=== PATIENT | male | born 1945 | race Caucasian/White ===

== ENCOUNTER 2020-01-10 08:57 | Outpatient (CLI) | payer MEDICARE, BC, SELFPAY ==
--- NOTE | 2020-01-10 08:30 | DI.RAD_ITS ---
EXAM: XR HIP RT COMPLETE AP PELVIS INDICATION: R hip pain. COMPARISON: No exams were available for comparison TECHNIQUE: 2D digital imaging was performed. FINDINGS: Marked osteoarthritis of the right hip is noted. This is characterized by joint space narrowing, sub chondral sclerosis and cysts. Osteophytes are seen at the femoral head. No acute fracture or disloc ation is seen. The bones appear normally mineralized. The soft tissues are unremarkable. Mild dege nerative changes are seen at the left hip. IMPRESSION: Marked osteoarthritis of the right hip. DATA REPOSITORY: RADIATION DOSE DELIVERED:
== END 2020-01-10 09:17 ==
PROVIDERS: PCP Family Medicine; Referring Provider Family Medicine; Visit Provider Physician Assistant
DX: M25.551 Pain in right hip (principal); M16.11 Unilateral primary osteoarthritis, right hip; Z98.890 Other specified postprocedural states
CPT/HCPCS: 99203; 73502

== ENCOUNTER 2020-02-18 02:05 | Outpatient (CLI) | payer MEDICARE, BC, SELFPAY ==
[2020-02-18 09:31] LABS: HCT 44.5 % (40.0-50.0); HGB 14.7 g/dL (13.5-17.5); MCH 29.2 pg (27.0-33.0); MCV 88.5 fL (80-95); MPV 8.6 fL (8.0-11.0); Platelet Count 203 10^3/uL (130-400); RBC 5.03 10^6/uL (4.36-5.78); RDW 12.5 % (11.8-14.1); RDW-SD 40.4 fL; WBC 6.83 10^3/uL (4.4-10.8)
[2020-02-18 10:34] LABS: Anion Gap 10.5 mmol/L (3-11); BUN 20 mg/dL (7-18); CO2 24.5 mmol/L (21.0-32.0); CREATININE 1.37 mg/dL (0.70-1.30); Calcium 8.8 mg/dL (8.5-10.1); Chloride 105 mmol/L (98-107); Estimated GFR 50.52 (mL/min/1.73m2); Glucose 93 mg/dL (74-106); Potassium 4.5 mmol/L (3.5-5.1); Sodium 140 mmol/L (136-145)
== END 2020-02-18 02:25 ==
PROVIDERS: PCP Family Medicine; Visit Provider Student in an Organized Health Care Education/Training Program
DX: M16.11 Unilateral primary osteoarthritis, right hip (principal); Z01.818 Encounter for other preprocedural examination
CPT/HCPCS: 36415; 80048; 85027; 86850; 86900; 86901

== ENCOUNTER 2020-02-18 07:31 | Outpatient (CLI) | payer MEDICARE, BC, SELFPAY ==
[2020-02-20 00:16] LABS: COVID-19 RT-PCR Result NEGATIVE (Negative)
== END 2020-02-18 07:51 ==
PROVIDERS: PCP Family Medicine; Visit Provider Student in an Organized Health Care Education/Training Program
DX: M16.11 Unilateral primary osteoarthritis, right hip (principal); Z01.818 Encounter for other preprocedural examination
CPT/HCPCS: 36415; 80048; 85027; 86850; 86900; 86901; U0003

== ENCOUNTER 2020-02-22 06:00 | Observation (INO) | payer MEDICARE, BC, SELFPAY ==
[2020-02-22] VITALS (12 sets, daily range): BP systolic 127–167; BP diastolic 64–90; PULSE 36–60; RESP 16–18; TEMP 34.6–36.6; O2SAT 95–100
[2020-02-22] MEDS: Acetaminophen 500 MG TAB 1000 MG PO ×2 (06:26→13:36)
[2020-02-22] MEDS: Lactated Ringers 1,000 ML 80 ML IV ×2 (06:26→13:35)
[2020-02-22] MEDS: Celecoxib 200 MG CAP 400 MG PO (06:26)
--- NOTE | 2020-02-22 07:00 | DI.RAD_ITS ---
EXAM: XR HIP RT IN OR CLINICAL HISTORY: OSTEOARTHRITIS RIGHT HIP TECHNIQUE: 2D and realtime digital imaging was performed. Fluoroscopy was provided in the OR COMPARISON: No exams were available for comparison FINDINGS: C-arm fluoroscopy was utilized by Dr. Henderson during insertion of right hip prosthesis. Hard copies show acetabular and femoral components in place. Fluoro time, 28.9 seconds. IMPRESSION: RADIATION DOSE DELIVERED: Total DLP
[2020-02-22] MEDS: ceFAZolin 2 GM/50 ML BAG IVPB (07:34)
[2020-02-22] MEDS: Bupivacaine 0.25% Pres-Free 30 ML VIAL ×2 (08:17→08:18)
[2020-02-22] MEDS: Ketorolac 30 MG/ML VIAL (08:17)
--- NOTE | 2020-02-22 10:02 | ROE_ITS ---
Date of service: 02/22/20 Time of Service: 10:02 Operative Note Operative Note DATE OF PROCEDURE: 02/22/20 PRE-OP DIAGNOSIS: Right Hip Osteoarthritis POST-OP DIAGNOSIS: same PROCEDURE: Right Anterior Total Hip Arthroplasty SURGEON: Dejan Henderson ENGLISH INSTRUCTOR: Afsaneh Jefferson ANESTHESIA: spinal ESTIMATED BLOOD LOSS: 250 PATHOLOGY: none sent TOURNIQUET TIME: 0 COMPLICATIONS: None Patient was transported to: PACU Patient's condition: stable Implants: 1. Depuy Dahlgren Acetabular Component, 56mm 2. Depuy Acetabular Liner, 44x10pe 3. Depuy Corail Standard Collared Femoral Stem, Size 16 4. Depuy Altrx Ceramic Femoral Head, Size 36+12mm Indications: I have seen Rodrigo in clinic for symptoms of hip arthritis, confirmed with radiographic findings. Rodrigo has exhausted nonoperative methods and was having significant limitations in daily function and desired better function and less pain. I discussed the technical details of a hip replacement. I explained the risks of the procedure to include, but not limited to, bleeding, infection, pain, stiffness, fracture, damage to nerves and vessels, damage to muscles and tendons, loosening, instability, leg length inequality, need for repeat procedure, blood clot and cardiopulmonary demise. Despite these risks, Rodrigo elected to proceed. Findings: There was significant signs of arthritis throughout the hip. Large lateral neck osteophytes and acetabular floor and peripheral osteophytes were present. Procedure Description: Rodrigo was greeted in the preoperative holding area where the correct side was identified and marked. The consent was reviewed with the patient and signed. The history and physical was updated. All questions were answered. Rodrigo was taken back to the operating room. A spinal anesthestic was then administered. The patient was placed into the supine position on the operating room table. The patient was then positioned onto the ARCH table. Both feet were wrapped with Webrill cotton wrap along with Coban. The feet were placed in specialized boots for the ARCH table, well seated within the boot and secured. SCDs were applied. The patient was then slid down onto a peroneal post and the nonoperative leg was secured in a leg irving attached to the table. The operative side was placed into the ARCH table attachment and bed height and positioning was secured. A preoperative AP pelvis was obtained to serve as a reference for determining leg lengths. Prophylactic antibiotics in the form of cefazolin were administered. 1g of Tranxemic Acid was given intravenously within 30 minutes of incision. The right leg was then prepped with Chloraprep and draped in a standard fashion. A second prep with Chloraprep was performed prior to placement of a shower-curtain type drape with Iodine impregnated skin protection. A timeout to confirm correct identity, side and site, procedure, allergies, anesthesia, and medical concerns was performed. An obliquely oriented incision was made starting lateral to the ASIS and running distal over the Tensor Fascia Natasha (TFL) muscle belly toward the fibular head, approximately 10cm. The skin and soft tissue was dissected sharply, through Ney?s fascia, and to the fascia of the TFL. With the fascia and superior border of the IT band identified, the fascia was incised with a new knife just above any perforators from the IT band. The TFL muscle belly was bluntly dissected away from the fascia and moved laterally. The fat between TFL and rectus was identified to ensure the dissection was not within the TFL. Blunt dissection created space between abductors and the capsule and retractor was placed over the lateral femoral neck. The fibers of the rectus femoris tendon were identified and these were freed from the anterior capsule. A second cobra retractor was placed around the medial femoral neck. The TFL was further retracted laterally to show the deep fascia. Careful dissection through this layer identified three main crossing vessels of the lateral femoral circumflex. These were cauterized in multiple locations and then cut without any noticeable bleeding. The TFL was further released bluntly from the deep fascia to expose a nterior hip capsule and fat the Lucius orthopaedic retractor was then placed beneath the TFL and against sartorius and medial soft tissues to protect and retract the soft tissues. A T-capsulotomy was then performed starting at the superior lateral acetabulum and moving distally to the intertrochanteric ridge. These capsular flaps were tagged with a No. 1 Ethibond and elevated from within. The capsular flaps were released to the shoulder of the lateral neck and to the lesser trochanter to give excellent visualization of the proximal femur. There were large lateral osteophyte seen around the neck which made release of the capsule challenging. A neck osteotomy was performed using an oscillating saw based on preoperative templates. This cut started in the shoulder and of the lateral neck and exited medially. The saw was at all times directed medially to avoid injury to the greater trochanter. 6cm of traction was applied to the leg and the osteotomy opened. The femoral head was removed with a corkscrew, making sure to protect the TFL on its exit. This was measured on the back table to determing the starting reamer size. Portions of the rectus obscuring visualization were mini sarah elevated off the superior acetabulum. An anterior retractor was placed over the anterior wall between capsule and labrum and attached to the Gripper retraction system. A posterior retractor was placed similarly. This provided excellent visualization. The contents of the cotyloid fossa were removed with electrocautery and the labrum was removed with a knife. There was a notable floor osteophyte. There was significant chondromalacia of the superior acetabulum. Acetabular reaming began with a 52 mm reamer. This first reaming was directed anterior to posterior and medial to get down to the true floor. This was inspected and reamed until the true floor was reached. The anterior retractor was then released and entry and exit was provided by traction on the capsular flaps. I then reamed sequentially up to a 56mm reamer where good fit was obtained. The larger reamers were oriented based on anatomical reference of the anterior and lateral subramanian to ensure proper abduction and anteversion. Positioning and size was confirmed with the fluoroscopy. A 56mm Depuy Dahlgren acetabular component was selected. The acetabulum was reamed around the periphery with the selected acetabular size to prevent a rim fit. The deep tissues were irrigated. The acetabular component was then impacted in a position of about 40-45 degrees of abduction and 15-20 degrees of anteversion, using the patient?s anatomy as the ultimate landmark. Fluoroscopy was used to confirm this. There was excellent drum tester of the acetabular component and the inserting handle was removed. The acetabular liner, Depuy [id number] polyethylene liner, was inserted and lined up with the tines of the acetabular component. There was no soft tissue interposition. The liner was then impacted into position and confirmed to be well-seated. A portion of the andrey-articular cocktail was then injected around the acetabulum into the capsule and periosteum. This cocktail consisted of 50cc of 0.25% Bupivicaine and 20cc of Exparel, expanded to a total of 120cc. Traction was released from the femur. The leg was rotated to 120 degrees. Any remaining medial capsule was released until the lesser trochanter was easily palpable. A Greco retractor was placed medially. The lateral capsule was further released into the shoulder to allow access to the greater trochanter. A Greco retractor was placed over the greater trochanter which allowed the trochanter to flip in front of the capsule for excellent exposure. The leg was brought down into maximal extension and 20 degrees of adduction while ensuring there was no impingement on the acetabulum. Any remnant capsule within the trochanter was released. Piriformis and obturator externis were identified and protected. There was excellent access to the proximal femur. The lateral neck remnant was removed with a rongeur. A blunt canal probe was used to identify the canal and trajectory for later broaching. A box osteotome initiated the broach course. A small curved rasp and a curved curette were used to work laterally. Broaching then began with a size 8 Corail broach. This was inserted manually around the trochanter and into the canal before mallet blows. The broach was seated to a few millimeters below the cut level based on the neck cut and the preoperative template. Sequential broaching was continued with the Dodonationse pneumatic broaching device until a tight fit was obtained with good rotational control of the femur. A trial standard neck was inserted along with a +5 trial head. The leg was brought out of extension and adduction and then reduced with traction and internal rotation. The leg was stable anteriorly in a position of 30 degrees of extension and 90 degrees of external rotation. Fluoroscopy was used to ensure there was no fracture and the stem was seated well. Leg lengths were checked with an AP pelvis and pelvic reference points. [employer] navigation system was used to confirm appropriate positioning and leg length and offset. This unfortunately did not seem to re-create the offset nor the leg length as much as the template would suggest. It did appear that my cup was slightly more medial and slightly higher than planned in my neck cut was cut at the appropriate height. Therefore, using the joint point system it seemed a +12 head on a standard neck would re-create his normal anatomy the best. Once content with the desired offset and leg lengths, the leg was brought back into extension, external rotation and adduction. The periosteum and surrounding tissue was injected with remaining portion of the andrey-articular cocktail. The proximal femur was irrigated as well as the deep tissues. The Depuy Corail standard collared stem, size 16, was then manually inserted into the proximal femur making sure to control rotation. It was then malleted into position with light blows, giving breaks to allow bone expansion and decrease risk of fracture. The selected Depuy Altrx Ceramic Head, size 36+12mm, was then placed onto the clean and dry trunnion and secured with impaction onto the tapered fit. The leg was brought back out of extension and adduction and reduced with traction and internal rotation. Stability was confirmed with no shuck at 90 degrees of external rotation and 30 degrees of extension. No impingement through range of motion arc. Final x-ray images were obtained with fluoroscopy to confirm adequate positioning and no intraoperative fracture. The deep tissues were thoroughly irrigated with Irrisept chlorhexadine solution. The second dose of TXA 1g was administered intravenously. The capsule was then reapproximated with the previously placed Ethibond sutures. The TFL fascia was finally closed with a No. 2 Stratafix, barbed suture. Deep tissues were then reapproximated with 0 Vicryl and a running 2-0 Vicryl. The skin was closed with a running 4-0 Monocryl in a subcuticular fashion. This was reinforced with skin glue. A Mepilex silver dressing was applied. At the end of the case, all counts were correct. Rodrigo was transferred to the hospital bed without difficulty and suffering no apparent complication. Rodrigo has a good prognosis. Physical therapy will start today and without restrictions, weight-bearing as tolerated. Aspirin 81mg BID will be used for DVT prophylaxis.
--- NOTE | 2020-02-22 10:09 | W.PM.DS.N ---
Date of service: 02/22/20 Time of Service: 14:40 DS: Diagnosis Discharge Diagnosis (1) Primary osteoarthritis of right hip: Status: Chronic Discharge Plan Disposition Patient Disposition: HOME Condition: Good Discharge Details Reason For Visit: R HIP TOTAL Admit Date/Time: 02/22/20 06:00 Admit Provider: Dejan Henderson Attending Provider: Dejan Henderson Primary Care Provider: Rodrigo Castillo [facility] Hospital Course: Patient was admitted to the medical/surgical floor following the procedure. The surgery was tolerated well without any notable medical, surgical, or anesthetic complications. Mobilization began postoperatively. He was voiding spontaneously. Vitals were stable. Physical therapy worked with the patient and was cleared for discharge home. No acute medical issues. Pain was controlled on oral regimen. Home Meds and New Rx's Prescriptions: New celecoxib 200 mg capsule 200 mg PO BID PRN (Reason: pain) Qty: 60 RF: 1 aspirin 81 mg tablet,delayed release (DR/EC) 81 mg PO BID Qty: 60 RF: 0 acetaminophen 500 mg tablet 1,000 mg PO Q8H PRN (Reason: pain) Qty: 90 RF: 3 pantoprazole 40 mg tablet,delayed release (DR/EC) 40 mg PO DAILY Qty: 30 RF: 0 docusate sodium [Colace] 100 mg capsule 100 mg PO BID PRNQty: 10 RF: 0 oxycodone 5 mg tablet 5 mg PO Q4H Qty: 12 RF: 0 Continued No Known Home Meds RF: 0 Discharge Instructions Additional Instructions: Dr. Henderson's Total Hip Discharge Instructions Activity: The most important activity is to walk. You should try to take short walks a few times a day. You have no restrictions on movement or positioning, but do not try to force what you do. You will find some stiffness and weakness with hip flexion (lifting your knee). Do not try to strengthen this too early, continue to practice walking and stairs and this will come. - Outpatient physical therapy can be helpful to help return you to a normal gait and improve your flexibility and strength. This can start around 2 weeks. For most patients, it?s not necessary. Usually this is determined at the time of discharge or at the first post-operative visit. - You should wear the FABIOLA hose on both legs for 2 weeks. You may remove those at night. These prevent blood pooling and swelling. Dressing: Keep the surgical dressing in place for at least one week, although it may stay in place untill follow-up. It may get wet after 3 days but avoid soaking the dressing. If it gets wet, just lightly pat dry. Most people prefer to cover the dressing with some ClingWrap, Saran Wrap, to keep it dry. After the first week it may be removed if desired and then replaced with light gauze and tape or nothing. It is important to always keep some gauze or the dressing between skin folds, especially when you are sitting, so the incision is not folded over on itself at the belly fold. Medications: - You should take Tylenol and an anti-inflammatory Celebrex as your primary pain control medications - You have been prescribed a stronger pain medication Oxycodone for breakthrough pain, take as needed as prescribed. - You have also been prescribed a stomach acid reduction agent Pantoprozole to help reduce stomach acid and reflux. - You will be taking Aspirin 81mg twice a day for DVT prevention unless instructed otherwise. - If you have constipation you should take Colace or Miralax (both [id number]). It takes most people 3-4 days to have a bowel movement. Follow-up: 2 weeks. If you have any acute concerns or questions, please do not hesitate to contact the office at [phone]. You may contact Dr. Henderson with any questions after hours through the hospital at [phone] or on his cell phone at [phone]. Referrals: Dejan Henderson MD [ [facility] STAFF PHYSICIAN] - Activity:: Activity as Tolerated Equipment/Supplies:: Walker Diet:: As Tolerated DS: Summary Status at Discharge Functional status at discharge: uses cane/walker Overall status at discharge: patient is progressing back to baseline Mental Status: mental status grossly normal Speech and Movement: speech and movement normal Mood: congruent mood Affect: normal affect Exam Psych Mental Status: mental status grossly normal Speech and Movement: speech and movement normal Mood: congruent mood Affect: normal affect DS: Data Vitals/I&O Vitals and I&O: Vital Signs Temperature 36.6 C 02/22/20 09:57 Pulse 53 L 02/22/20 09:57 Pulse Rhythm Regular 02/22/20 06:16 Respiratory Rate 18 08/04/20 09:57 Respiratory Effort 02/22/20 06:16 Blood Pressure 133/69 02/22/20 09:57 Pulse Oximetry 96 02/22/20 09:57 Respiratory End-tidal CO2 28 02/22/20 09:57 Oxygen Delivery Method Room Air 02/22/20 09:57 Oxygen Flow Rate 0 02/22/20 06:16 Pain Level 0 02/22/20 09:57 Intake & Output 02/21/20 02/21/20 02/22/20 11:59 23:59 11:59 Intake Total 810 / 810 Output Total 250 / 250 Balance 560 / 560 Weight 111.4 kg Intake: IV 810 / 810 Output: Estimated Blood Loss 250 / 250 Other: Emesis Description None PFSH Medical History Bradycardia (Acute) Eczema (Acute) Hyperlipidemia (Acute) Obesity (Chronic) Prostate cancer (Chronic) Surgical History S/P appendectomy (Resolved) Social History Smoking/Tobacco Use Status: Former Tobacco Use Quit Date: 07/21/83 Pack-years: 20 Alcohol Intake: current Alcohol Intake frequency: a few times a week Drug use: Never Substance use type: does not use Current gender identity: male Other: lives alone
[2020-02-22] MEDS: ceFAZolin 1 GM/50 ML BAG IVPB (11:27)
--- NOTE | 2020-02-22 12:40 | IN_ITS ---
Date of service: 02/22/20 Time of Service: 12:40 PT Notes Visit Reasons: R HIP TOTAL Physical Therapy Inpatient Initial Evaluation Date: 02/22/2020 Referring Doctor: Dejan Henderson MD PT Orders: PT CONSULT: Status post Ortho surgery Precautions: Fall. Standard. WBAT on right LE. Patient Profile/Admitting Diagnosis: Rodrigo is a 74-year-old male with primary unilateral osteoarthritis of the right hip status post right total hip arthroplasty on postoperative day 0. PMHX: Medical History (Updated 02/18/20 @ 07:51 by Afsaneh Jefferson) Bradycardia (Acute) Eczema (Acute) Hyperlipidemia (Acute) Obesity (Chronic) Prostate cancer (Chronic) Surgical History (Updated 02/18/20 @ 08:12 by Afsaneh Jefferson) S/P appendectomy (Resolved) Social History/Home Situation: Lives alone in a two-story private home with 2 s teps to enter and a rail on one side. He plans on staying the main floor of the house when he goes home. He is independent with all ADLs without an assistive device nor adaptive equipment although he stated that for the past year he was really limiting the amount of weight on the right LE without using an assistive device. He has a daughter who lives in be helping out once he goes home. 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 Equipment Owned/DME: Front wheeled walker, single-point cane Subjective: Patient reports just a little ache in the right hip and in the anterior medial aspect of thigh with mobility assessment. Denies headache, chest pain, dizziness throughout session. Hold to go home as soon as he is medi dionna cleared to do so. Objective: General Observation: Bilateral TEDS on. Cold pack on her right hip. Mepilex Ag over surgical incision. IV access in left UE. Mental Status: Alert and oriented x 4 Pain: 1/10 in the right hip ROM: Right Upper Extremity: Shoulder Flexion WFL. Shoulder abduction WFL. Elbow flexion WFL. Wrist flexion WFL. Opening and closing of hand WFL. Left Upper Extremity: Shoulder Flexion WFL. Shoulder abduction WFL. Elbow flexion WFL. Wrist flexion WFL. Opening and closing of hand WFL. Right Lower Extremity: Hip flexion WFL. Hip abduction WFL. Knee flexion WFL. Ankle dorsiflexion WFL. Ankle plantarflexion WFL. Left Lower Extremity: Hip flexion WFL. Hip abduction WFL. Knee flexion WFL. Ankle dorsiflexion WFL. Ankle plantarflexion WFL. Strength: Right Upper Extremity: Shoulder flexors 5/5. Shoulder abductors 5/5. Elbow flexors 5/5. Elbow extensors 5/5. Deputy Coroner Investigator strong. Left Upper Extremity: Shoulder flexors 5/5. Shoulder abductors 5/5. Elbow flexors 5/5. Elbow extensors 5/5. Deputy Coroner Investigator strong. Right Lower Extremity: Hip flexors 4/5. Hip abductors 4/5. Knee flexors 5/5. Knee extensors 5/5. Ankle dorsiflexors 5/5. Ankle plantarflexors 5/5. Left Lower Extremity:Hip flexors 5/5. Hip abductors 5/5. Knee flexors 5/5. Knee extensors 5/5. Ankle dorsiflexors 5/5. Ankle plantarflexors 5/5. Sensation: Intact as to pain and pressure on bilateral lower extremities. Bed Mobility/Transfers: Supine to sit independent Sit to supine independent Sit to stand SBA, needs front wheeled walker Stand to sit SBA, needs front wheeled walker Bed to chair SBA, needs front wheeled walker Chair to bed SBA, needs front wheeled walker Gait: Tolerated 150 feet x 2 using front wheeled walker with SBA. Step through gait pattern. Reported a mild ache in the anterior medial aspect of thigh that subsided with rest. Completed up-and-down six 4-inch steps holding onto rail a.m. with one hand and with a single-point cane on the other with standby assist using step to gait pattern. THERA EX: Patient tolerated standing level exercises consisting of bilateral heel raises x10, partial knee bends x10, and high marches x10 without any undue difficulty. Balance: Static Sitting: Normal Dynamic Sitting: Normal Static Standing: Fair Dynamic Standing: Fair Special Tests: Mobility Limitations Standardized Measure [facility] AM-PAC 6 clicks Basic Mobility Inpatient Short Form: Raw Score: 24 CMS Score: 0% deficit Informed Consent/Education: Patient instructed in purpose of PT consult and plan of care. Assessment: Rodrigo demonstrates functional mobility decline requiring the use of front wheeled walker to maximize independence with mobility ADL performance and fall risk. Rodrigo is a 74-year-old male with primary unilateral osteoarthritis of the right hip status post right total hip arthroplasty on postoperative day 0. Patient presents with clinical signs and symptoms consistent with current/admitting diagnoses that have resulted to mobility limitations, gait instability, generalized weakness, and impairment of motor control as demonstrated by the following impairment level findings: 1. Decreased strength to right hip major muscle groups 2. Impaired activity tolerance Impairments are contributing to the following functional limitations: 1. Inability to safely ambulate without assistive device and physical assistance 2. Increase completion time for mobility ADL performance Patient is assessed as a complexity based on the following: History: 74-year-old male with impairment level findings, functional limitations, and past medical history as indicated above Examination: Demonstrable impairment in strength, balance, and mobility level with underlying impairments and functional limitations as documented above Presentation:Evolving Decision Makin moderate complexity Goals: N/A. PT consult and 1 treatment session only for education training in the use of front wheeled walker and exercise initiation. Plan of Care/Treatment Plan: N/A. PT consult and 1 treatment session only for education training in the use of front wheeled walker and exercise initiation. DISCHARGE RECOMMENDATIONS: Outpatient PT services to regain premorbid independent level while maximizing return to vocational/recreational activities. No equipment needs at this time. TREATMENT CODE/TIME: 02713 x 25 minutes, 32616 x 14 minutes beginning at 12:40 PM. Thank you for the opportunity to participate in the care of this patient. Miriam Mcdonald PT, DPT, CLT [facility] [place], [place]
--- NOTE | 2020-02-22 14:58 | NUR.NOTE ---
Nursing Note: 02/22/2020 14:58 Patient arrived to the floor at 10:38 with med/surg nurse Lalit Montague after nurse received handoff report from Yun Lama RN, in the PACU. Patient ate lunch and was cleared by physical therapy before Dr. Henderson came up and determined that Rodrigo can be discharged home this afternoon. Patient to be discharged home with a daughter who will pick him up and help him at home.
== END 2020-02-22 16:06 | disposition home or self-care (01) ==
LOC: MS 11:10 → PDS 11:14 → MS 11:15
PROVIDERS: Admitting Provider Student in an Organized Health Care Education/Training Program; PCP Family Medicine; Visit Provider Student in an Organized Health Care Education/Training Program
PROC: 0SR904A Replacement of Right Hip Joint with Ceramic on Polyethylene Synthetic Substitute, Uncemented, Open Approach (ICD-10-PCS; CPT 27130; principal; 2020-02-22 08:00)
DX: M16.11 Unilateral primary osteoarthritis, right hip (principal); M25.541 Pain in joints of right hand; Z96.641 Presence of right artificial hip joint; E78.5 Hyperlipidemia, unspecified; E66.9 Obesity, unspecified
CPT/HCPCS: 27130; C1776; 97162; 97530; NC; 73501; G0378; J0690; J1885; J2405; J2704; J3010

== ENCOUNTER → 2020-02-22 07:53 | Outpatient (BNVA) | payer MEDICARE, BC, SELFPAY | PROVIDERS: PCP Family Medicine; Referring Provider Family Medicine; Visit Provider Student in an Organized Health Care Education/Training Program | DX: R69 Illness, unspecified (principal) ==

== ENCOUNTER 2020-03-09 08:40 | Outpatient (CLI) | payer MEDICARE, BC, SELFPAY ==
--- NOTE | 2020-03-09 08:30 | DI.RAD_ITS ---
EXAM: XR HIP RT COMPLETE AP PELVIS INDICATION: 1st post op. COMPARISON: CR XR HIP RT COMPLETE AP PELVIS from 01/10/2020 XR HIP RT IN OR from 02/22/2020 TECHNIQUE: 2D digital imaging was performed. FINDINGS: A right hip prosthesis is seen. The components appear satisfactorily aligned. There are no abnormal bony lucencies. There [id number] degenerative changes of the left hip. DATA REPOSITORY: RADIATION DOSE DELIVERED:
== END 2020-03-09 09:00 ==
PROVIDERS: PCP Family Medicine; Referring Provider Family Medicine; Visit Provider Student in an Organized Health Care Education/Training Program
DX: Z96.641 Presence of right artificial hip joint (principal)
CPT/HCPCS: 73502

== ENCOUNTER → 2020-04-06 08:47 | Outpatient (BNVA) | payer MEDICARE, BC, SELFPAY | PROVIDERS: PCP Family Medicine; Referring Provider Family Medicine; Visit Provider Student in an Organized Health Care Education/Training Program | DX: Z96.641 Presence of right artificial hip joint (principal); Z47.1 Aftercare following joint replacement surgery ==

== ENCOUNTER 2021-02-19 13:44 | Outpatient (CLI) | payer MEDICARE, BC, SELFPAY ==
--- NOTE | 2021-02-19 09:00 | DI.RAD_ITS ---
Exam(s) XR HIP RT AP LAT ONLY EXAM: XR HIP RT AP LAT ONLY CLINICAL HISTORY: R MARIA DOLORES. TECHNIQUE: 2D digital imaging was performed. COMPARISON: CR XR HIP RT COMPLETE AP PELVIS from 03/09/2020 FINDINGS: There is continued satisfactory position alignment of the components of the right hip prosthesis. No fracture or loosening evident. IMPRESSION: DATA REPOSITORY: RADIATION DOSE DELIVERED:
== END 2021-02-19 13:45 | disposition home or self-care (01) ==
LOC: DIORS 13:44
PROVIDERS: PCP Family Medicine; Referring Provider Family Medicine; Visit Provider Student in an Organized Health Care Education/Training Program
DX: Z47.1 Aftercare following joint replacement surgery (principal); Z96.641 Presence of right artificial hip joint
CPT/HCPCS: 99213; 73502

== ENCOUNTER 2022-02-21 09:59 | Outpatient (CLI) | payer MEDICARE, BC, SELFPAY ==
--- NOTE | 2022-02-21 09:45 | DI.RAD_ITS ---
Exam(s) XR KNEE RT 3V AP,LAT,DOREEN EXAM: XR KNEE RT 3V AP,LAT,DOREEN CLINICAL HISTORY: RIGHT KNEE PAIN. TECHNIQUE: 2D digital imaging was performed. Three views. COMPARISON: No exams were available for comparison FINDINGS: BONES: No acute fracture is present. No bony destructive lesion is seen. JOINTS: Joint spaces well maintained. The knee is normally aligned. No joint effusion is seen. Min imal periarticular spurring throughout. SOFT TISSUE: Normal. IMPRESSION: Mild degenerative changes. DATA REPOSITORY: RADIATION DOSE DELIVERED:
--- NOTE | 2022-02-21 09:45 | DI.RAD_ITS ---
Exam(s) XR HIP RT COMPLETE AP PELVIS EXAM: XR HIP RT COMPLETE AP PELVIS INDICATION: RIGHT HIP PAIN. COMPARISON: CR XR HIP RT AP LAT ONLY from 02/19/2021 TECHNIQUE: 2D digital imaging was performed. Two views. FINDINGS: There has been no change in right hip prosthesis or surrounding bone. No abnormal surrounding lucenc ies. There are [id number] degenerative changes of the left hip. DATA REPOSITORY: RADIATION DOSE DELIVERED:
== END 2022-02-21 10:00 | disposition home or self-care (01) ==
LOC: DIORS 10:00
PROVIDERS: PCP Family Medicine; Referring Provider Family Medicine; Visit Provider Student in an Organized Health Care Education/Training Program
DX: Z96.641 Presence of right artificial hip joint (principal); M23.91 Unspecified internal derangement of right knee
CPT/HCPCS: 20610; 73562; 73502; J1040

== ENCOUNTER 2023-05-12 14:01 | Outpatient (CLI) | payer MEDICARE, BC, SELFPAY ==
[2023-05-12 11:15] LABS: Abs Immature Grans 0.04 10^3/uL (0.0-0.06); Absolute Basophil Count 0.04 10^3/uL (0.0-0.2); Absolute Eosinophil Count 0.13 10^3/uL (0.0-0.7); Absolute Lymphocyte Count 0.71 10^3/uL (1.2-3.4); Absolute Monocyte Count 0.56 10^3/uL (0.1-0.8); Absolute Neutrophil Count 3.29 10^3/uL (1.2-6.7); Basophils % 0.8; Eosinophils % 2.7; HCT 40.9 % (40.0-50.0); HGB 14.1 g/dL (13.5-17.5); Immature Grans % 0.8; Lymphocytes % 14.9; MCH 30.1 pg (27.0-33.0); MCHC 34.5 % (32.0-36.0); MCV 87 fL (80-95); MPV 8.3 fL (8.0-11.0); Monocytes % 11.7; Neutrophils % 69.1; Platelet Count 173 10^3/uL (130-400); RBC 4.69 10^6/uL (4.36-5.78); RDW 12.7 % (11.8-14.1); WBC 4.77 10^3/uL (4.4-10.8)
[2023-05-12 11:33] LABS: ALT 29 U/L (16-63); AST 20 U/L (15-37); Albumin 3.5 g/dL (3.4-5.0); Alkaline Phosphatase 80 U/L (46-116); Anion Gap 9.1 mmol/L (3-11); BUN 20 mg/dL (7-18); Bilirubin, Total 0.6 mg/dL (0.2-1.0); CO2 25.9 mmol/L (21.0-32.0); Calcium 9.6 mg/dL (8.5-10.1); Chloride 104 mmol/L (98-107); Estimated GFR 76.08 (mL/min/1.73m2); Glucose 104 mg/dL (74-106); Potassium 4.5 mmol/L (3.5-5.1); Sodium 139 mmol/L (136-145); Total Protein 8.1 g/dL (6.4-8.2)
[2023-05-13 18:04] LABS: PSA, Ultrasensitive <0.01 ng/mL (<= 7.2)
[2023-05-16 02:26] LABS: Testosterone, Total 7.9 ng/dL (240-950)
== END 2023-05-12 14:02 | disposition home or self-care (01) ==
LOC: LBO 14:02
PROVIDERS: PCP Family Medicine; Visit Provider Colon & Rectal Surgery
DX: C61 Malignant neoplasm of prostate (principal)
CPT/HCPCS: 36415; 80053; 84153; 84403; 85025

== ENCOUNTER 2023-08-07 14:36 | Outpatient (CLI) | payer MEDICARE, BC, SELFPAY ==
[2023-08-09 09:37] LABS: PSA, Ultrasensitive <0.01 ng/mL (<= 7.2)
[2023-08-11 09:45] LABS: Testosterone, Total <7.0 ng/dL (240-950)
== END 2023-08-07 14:37 | disposition home or self-care (01) ==
LOC: LBO 14:37
PROVIDERS: PCP Family Medicine; Visit Provider Nurse Practitioner Family
DX: C61 Malignant neoplasm of prostate (principal)
CPT/HCPCS: 36415; 80053; 84153; 84403; 85025

== ENCOUNTER 2023-11-11 05:17 | Outpatient (CLI) | payer MEDICARE, BC, SELFPAY ==
[2023-11-11 09:49] LABS: Abs Immature Grans 0.07 10^3/uL (0.0-0.06); Absolute Basophil Count 0.05 10^3/uL (0.0-0.2); Absolute Eosinophil Count 0.14 10^3/uL (0.0-0.7); Absolute Monocyte Count 0.45 10^3/uL (0.1-0.8); Basophils % 1.1; HCT 42.3 % (40.0-50.0); HGB 14.5 g/dL (13.5-17.5); Immature Grans % 1.5; Lymphocytes % 15.2; MCHC 34.3 % (32.0-36.0); MCV 87 fL (80-95); Monocytes % 9.8; Neutrophils % 69.4; RBC 4.84 10^6/uL (4.36-5.78); RDW 12.6 % (11.8-14.1); RDW-SD 40.1 fL; WBC 4.61 10^3/uL (4.4-10.8)
[2023-11-11 10:07] LABS: ALT 27 U/L (16-63); AST 20 U/L (15-37); Albumin 3.9 g/dL (3.4-5.0); Alkaline Phosphatase 95 U/L (46-116); Anion Gap 10.2 mmol/L (3-11); BUN 22 mg/dL (7-18); Bilirubin, Total 0.6 mg/dL (0.2-1.0); CO2 26.8 mmol/L (21.0-32.0); CREATININE 1.2 mg/dL (0.70-1.30); Calcium 9.4 mg/dL (8.5-10.1); Chloride 105 mmol/L (98-107); Estimated GFR 61.13 (mL/min/1.73m2); Glucose 111 mg/dL (74-106); Potassium 4.8 mmol/L (3.5-5.1); Sodium 142 mmol/L (136-145); Total Protein 8.3 g/dL (6.4-8.2)
[2023-11-11 10:14] LABS: Diff Comment PLT Morph Reviewed; RBC Morphology Normal
[2023-11-13 13:05] LABS: PSA, Ultrasensitive <0.01 ng/mL (<= 7.2)
[2023-11-14 17:01] LABS: Testosterone, Total <7.0 ng/dL (240-950)
== END 2023-11-11 05:18 | disposition home or self-care (01) ==
PROVIDERS: PCP Family Medicine; Visit Provider Nurse Practitioner
DX: C61 Malignant neoplasm of prostate (principal)
CPT/HCPCS: 36415; 80053; 84153; 84403; 85025

== ENCOUNTER 2024-02-10 01:29 | Outpatient (CLI) | payer MEDICARE, BC, SELFPAY ==
[2024-02-10 10:22] LABS: Abs Immature Grans 0.03 10^3/uL (0.0-0.06); Absolute Basophil Count 0.03 10^3/uL (0.0-0.2); Absolute Eosinophil Count 0.14 10^3/uL (0.0-0.7); Absolute Lymphocyte Count 0.71 10^3/uL (1.2-3.4); Absolute Monocyte Count 0.57 10^3/uL (0.1-0.8); Absolute Neutrophil Count 3.17 10^3/uL (1.2-6.7); Basophils % 0.6 %; HCT 38.5 % (40.0-50.0); HGB 13.1 g/dL (13.5-17.5); Immature Grans % 0.6 %; Lymphocytes % 15.3 %; MCH 30.1 pg (27.0-33.0); MCV 89 fL (80-95); MPV 8.4 fL (8.0-11.0); Monocytes % 12.3 %; Neutrophils % 68.2 %; Platelet Count 165 10^3/uL (130-400); RBC 4.35 10^6/uL (4.36-5.78); RDW 12.9 % (11.8-14.1); WBC 4.65 10^3/uL (4.4-10.8)
[2024-02-10 10:34] LABS: ALT 24 U/L (16-63); AST 19 U/L (15-37); Albumin 3.6 g/dL (3.4-5.0); Alkaline Phosphatase 89 U/L (46-116); Anion Gap 10.3 mmol/L (3-11); BUN 26 mg/dL (7-18); Bilirubin, Total 0.49 mg/dL (0.2-1.0); CO2 23.7 mmol/L (21.0-32.0); CREATININE 1.3 mg/dL (0.70-1.30); Chloride 108 mmol/L (98-107); Estimated GFR 55.53 (mL/min/1.73m2); Glucose 115 mg/dL (74-106); Potassium 4.3 mmol/L (3.5-5.1); Sodium 142 mmol/L (136-145); Total Protein 7.8 g/dL (6.4-8.2)
[2024-02-11 18:55] LABS: PSA, Ultrasensitive <0.01 ng/mL (<= 7.2)
[2024-02-14 08:07] LABS: Testosterone, Total <7.0 ng/dL (240-950)
== END 2024-02-10 01:30 | disposition home or self-care (01) ==
LOC: LBO 01:29
PROVIDERS: PCP Family Medicine; Visit Provider Colon & Rectal Surgery
DX: C61 Malignant neoplasm of prostate (principal); Z79.818 Long term (current) use of other agents affecting estrogen receptors and estrogen levels
CPT/HCPCS: 36415; 80053; 84153; 84403; 85025

== ENCOUNTER 2024-05-20 13:00 | Outpatient (CLI) | payer MEDICARE, BC, SELFPAY ==
[2024-05-20 13:29] LABS: Abs Immature Grans 0.03 10^3/uL (0.0-0.06); Absolute Basophil Count 0.05 10^3/uL (0.0-0.2); Absolute Eosinophil Count 0.66 10^3/uL (0.0-0.7); Absolute Lymphocyte Count 0.93 10^3/uL (1.2-3.4); Absolute Monocyte Count 0.55 10^3/uL (0.1-0.8); Absolute Neutrophil Count 4.08 10^3/uL (1.2-6.7); Basophils % 0.8 %; Eosinophils % 10.5 %; HCT 39.8 % (40.0-50.0); HGB 13.1 g/dL (13.5-17.5); Immature Grans % 0.5 %; Lymphocytes % 14.8 %; MCH 29.6 pg (27.0-33.0); MCHC 32.9 % (32.0-36.0); MCV 90 fL (80-95); MPV 8.6 fL (8.0-11.0); Monocytes % 8.7 %; Neutrophils % 64.7 %; Platelet Count 181 10^3/uL (130-400); RBC 4.43 10^6/uL (4.36-5.78); RDW 12.8 % (11.8-14.1); RDW-SD 42.2 fL
[2024-05-20 13:31] LABS: ALT 26 U/L (16-63); AST 22 U/L (15-37); Albumin 3.6 g/dL (3.4-5.0); Alkaline Phosphatase 83 U/L (46-116); Anion Gap 10.7 mmol/L (3-11); BUN 22 mg/dL (7-18); Bilirubin, Total 0.77 mg/dL (0.2-1.0); CO2 26.3 mmol/L (21.0-32.0); CREATININE 1.3 mg/dL (0.70-1.30); Calcium 8.9 mg/dL (8.5-10.1); Chloride 106 mmol/L (98-107); Estimated GFR 55.19 (mL/min/1.73m2); Glucose 94 mg/dL (74-106); Potassium 4.4 mmol/L (3.5-5.1); Sodium 143 mmol/L (136-145); Total Protein 7.6 g/dL (6.4-8.2)
[2024-05-22 09:36] LABS: PSA, Ultrasensitive <0.01 ng/mL (<= 7.2)
[2024-05-25 16:48] LABS: Testosterone, Total <7.0 ng/dL (240-950)
== END 2024-05-20 13:01 | disposition home or self-care (01) ==
LOC: LBO 13:05
PROVIDERS: PCP Family Medicine; Visit Provider Physician Assistant
DX: C61 Malignant neoplasm of prostate (principal); Z79.818 Long term (current) use of other agents affecting estrogen receptors and estrogen levels
CPT/HCPCS: 36415; 80053; 84153; 84403; 85025